=== PATIENT | female | born 1970 | race African-American/Black ===

== ENCOUNTER 2019-01-19 20:55 | Emergency (ER) | payer MEDICAID ==
[~2019-01-19] VITALS: Ht 160 cm; Wt 79.0 kg
[~2019-01-19 20:55] MED LIST: DICL75TA5 PO
[2019-01-19] MEDS ORDERED: AM500 PO (21:11)
[2019-01-19] MEDS ORDERED: ASPIRIN 81MG TABLET PO ONE (22:45)
[2019-01-19] MEDS ORDERED: VISCOUS LIDOCAINE 2% 15 ML UDC PO ONE (22:45)
[2019-01-19] MEDS ORDERED: MAGNESIUM/ALUMINUM HYDROXIDE/SIMETHICONE 30ML UDC PO ONE (22:45)
[2019-01-19 23:06] LABS: BASOPHILS % 0.8 % (0.0-2.0); EOSINOPHILS % 2.5 % (0.0-5.0); HEMATOCRIT. 39.2 % (36.0-48.0); HEMOGLOBIN. 12.8 g/dL (12.0-16.0); LYMPHOCYTES % 45.6 % (20.0-50.0); MEAN CORPUSCULAR HEMOGLOBIN 27.1 pg (28.0-32.0); MEAN CORPUSCULAR VOLUME 83.3 fL (81.0-99.0); MEAN PLATELET VOLUME 9.9 fl (7.4-10.4); MONOCYTES % 9.1 % (2.0-8.0); PLATELET 234 x1000/uL (130-400); RED CELL DISTRIBUTION WIDTH 13.2 % (11.6-14.6)
[2019-01-19 23:08] LABS: CHLORIDE 108 mEq/L (98-107)
[2019-01-20 01:12] VITALS: BP 142/72
== END 2019-01-20 01:20 | disposition home or self-care (01) ==
LOC: ER 21:59
DX: K21.9 Gastro-esophageal reflux disease without esophagitis (principal); Z88.0 Allergy status to penicillin; Z88.6 Allergy status to analgesic agent; Z79.899 Other long term (current) drug therapy
CPT/HCPCS: 36415; 71045; 80053; 83880; 84484; 85025; 93005; 99284; Z7610

== ENCOUNTER 2019-02-26 00:17 | Emergency (ER) | payer MEDICAID ==
[~2019-02-26] VITALS: Ht 160 cm; Wt 83.6 kg
[~2019-02-26 00:17] MED LIST changes: +AM500 PO
[2019-02-26] MEDS ORDERED: SODIUM CHLORIDE 0.9% 1,000 ML IV ONE (01:41)
[2019-02-26] MEDS ORDERED: KETOROLAC 30MG/ML VIAL IV STA (01:41)
[2019-02-26] MEDS ORDERED: METOCLOPRAMIDE HCL 10MG/2ML VIAL IV ONE (01:45)
[2019-02-26] MEDS ORDERED: DIPHENHYDRAMINE 50MG/ML VIAL IV ONE (01:45)
[2019-02-26 04:27] VITALS: BP 121/81
== END 2019-02-26 04:55 | disposition home or self-care (01) ==
LOC: ER 00:17
DX: R51 Headache (principal); K21.9 Gastro-esophageal reflux disease without esophagitis; Z88.0 Allergy status to penicillin
CPT/HCPCS: 81025; 96374; 96375; 99283; J1200; J1885; J2765; J7030

== ENCOUNTER 2024-03-13 13:00 | Emergency (ER) | payer MEDICAID ==
[~2024-03-13] VITALS: Ht 172.7 cm; Wt 82.0 kg
[~2024-03-13 13:00] MED LIST changes: -AM500 PO; +AMOX-494 PO
[2024-03-13 13:01] VITALS: O2SAT 98
[2024-03-13 15:06] LABS: EOSINOPHILS % 1.8 % (0.0-5.0); HEMOGLOBIN. 12.8 g/dL (12.0-16.0); LYMPHOCYTES % 30.6 % (20.0-50.0); MEAN CORPUSCULAR HEMOGLOBIN 27.5 pg (28.0-32.0); MEAN CORPUSCULAR HGB CONC 32.8 g/dL (31.0-37.0); MEAN CORPUSCULAR VOLUME 83.8 fL (81.0-99.0); MEAN PLATELET VOLUME 9.5 fl (7.4-10.4); MONOCYTES % 9.5 % (2.0-8.0); NEUTROPHILS % 57.1 % (40.0-76.0); PLATELET 202 x1000/uL (130-400); RED BLOOD CELL COUNT 4.65 mill/uL (4.2-5.4); RED CELL DISTRIBUTION WIDTH 12.9 % (11.6-14.6); WHITE BLOOD COUNT 6.6 x1000/uL (4.5-11.0)
[2024-03-13 15:18] LABS: CHLORIDE 105 mEq/L (98-107); POTASSIUM 3.9 mEq/L (3.5-5.1); SODIUM 141 mEq/L (136-145)
[2024-03-13 15:19] LABS: CALCIUM 9.4 mg/dL (8.7-10.4); CARBON DIOXIDE 27 mEq/L (21-32)
[2024-03-13 15:24] LABS: CREATININE 0.8 mg/dL (0.6-1.0); GLUCOSE 93 mg/dL (70-105); TROPONIN I HIGH SENSITIVITY 10 ng/L (3.0-34); UREA NITROGEN BLOOD 14 mg/dL (9-23)
[2024-03-13 15:25] LABS: ALANINE AMINOTRANSFERASE 19 IU/L (10-49); ASPARTATE AMINOTRANSFERASE 28 IU/L (<34)
[2024-03-13 15:26] LABS: ALBUMIN 4.4 g/dL (3.2-4.8); BILIRUBIN TOTAL 0.4 mg/dL (0.1-1.0)
[2024-03-13 16:09] VITALS: TEMP 37.05852; O2SAT 98
[2024-03-13 17:23] VITALS: BP 121/86; PULSE 70; RESP 18; TEMP 98.7
[2024-03-13] MEDS: ASPIRIN 325MG EC TABLET PO ONE (18:20)
[2024-03-13 18:53] LABS: INR 0.9; PARTIAL THROMBOPLASTIN TIME 26.4 sec (23.4-31.0); PROTHROMBIN TIME 10.4 sec (9.6-11.0)
[2024-03-13] MEDS ORDERED: IOHEXOL-350 100 ML BOTTLE ONE (23:18)
== END 2024-03-13 20:11 | disposition short-term general hospital (02) ==
LOC: ER 13:24
DX: G45.8 Other transient cerebral ischemic attacks and related syndromes (principal); K21.9 Gastro-esophageal reflux disease without esophagitis; I10 Essential (primary) hypertension; Z88.0 Allergy status to penicillin
CPT/HCPCS: 80053; 83880; 85025; 85610; 85730; 84484; 36415; 71045; 70496; 70498; 70450; 93005; 99285; Q9967; Z7610 ×3